=== PATIENT | male | born 1950 | race Caucasian/White ===

== ENCOUNTER → 2021-02-19 | Outpatient (CLI) | payer MEDICARE ==
[2021-02-19 11:19] LABS: ALT 30 U/L (10-49); AST 23 U/L (14-35); Chol/HDL Ratio 7.21 Ratio; LDL Cholesterol,Calculated 195.1 mg/dL (0.0-131.0)
== END | disposition home or self-care (01) ==
LOC: LABWHC1 07:04
PROVIDERS: ATTEND Internal Medicine Interventional Cardiology
DX: E78.2 Mixed hyperlipidemia (principal)
CPT/HCPCS: 36415; 80061; 84450; 84460

== ENCOUNTER → 2021-03-18 | Outpatient (CLI) | payer MEDICARE ==
[2021-03-18 11:29] LABS: HGB 15.8 g/dL (13.0-17.0); MCH 30.6 pg (27.0-32.0); MCHC 33.6 g/dL (32.0-37.0); MCV 91.1 fL (80.0-97.0); Mean Platelet Volume 9.9 fL (9.5-12.2); NRBC Per 100 WBC 0 /100 WBCS (0.0-0.0); Platelet Count 256 X 10*3/uL (140-440); RBC 5.16 X 10*6/uL (4.40-5.60); RDW 12.4 % (11.5-14.5); WBC 4.84 X 10*3/uL (4.50-10.00)
[2021-03-18 15:20] LABS: African American GFR (CKD) 83.7 (60.0-200.0); Anion Gap 11.9 mmol/L (10.00-18.00); Blood Urea Nitrogen 16.6 mg/dL (9.0-27.0); Carbon Dioxide 27.7 mmol/L (20.0-27.5); Non-African American GFR(CKD) 72.2 (60.0-200.0); Potassium 4.4 mmol/L (3.5-5.5)
== END ==
LOC: LABPAT 07:10
PROVIDERS: ATTEND Internal Medicine Interventional Cardiology
DX: R94.39 Abnormal result of other cardiovascular function study (principal)
CPT/HCPCS: 36415; 80051; 82565; 84520; 85027

== ENCOUNTER → 2023-06-22 | Outpatient (CLI) | payer MEDICARE ==
--- NOTE | 2023-06-22 16:32 | US ---
EXAMINATION TYPE: US carotid duplex BILAT DATE OF EXAM: 06/22/2023 COMPARISON: NONE CLINICAL INDICATION: Male, 73 years old with history of R09.89 OTH SYMPTOMS AND SIGNS INVOLVING THE C IRC A; Carotid bruit. Hx prior smoker x 10 years, hypertension, hyperlipidemia. TECHNIQUE: Carotid duplex ultrasound examination. Indirect Doppler criteria was utilized. FINDINGS: EXAM MEASUREMENTS: RIGHT: Peak Systolic Velocity (PSV) cm/sec ----- Right CCA: 91.9 ----- Right ICA: 80.1 ----- Right ECA: 112 ICA/CCA ratio: 1.07 RIGHT: End Diastole cm/sec ----- Right CCA: 15.5 ----- Right ICA: 12.6 ----- Right ECA: 0.0 LEFT: Peak Systolic Velocity (PSV) cm/sec ----- Left CCA: 101 ----- Left ICA: 159 ----- Left ECA: 204 ICA/CCA ratio: 1.57 LEFT: End Diastole cm/sec ----- Left CCA: 14.9 ----- Left ICA: 25.2 ----- Left ECA: 14.3 VERTEBRALS (direction of flow): Right Vertebral: Antegrade Left Vertebral: Antegrade Rhythm: Normal POWER PLANT MANAGER NOTES: Plaque seen within bilateral bulbs. Narrowing seen within proximal right ICA. Elevated velocities within left ICA and left ECA. IMPRESSION: 1. Approximately 50-69% stenosis in the mid/distal left ICA based on peak systolic velocity. 2. Less than 50% stenosis in the proximal right ICA. Criteria for Assigning % of Stenosis / Diameter reduction (Estimation based on the indirect measurements of the internal carotid artery velocities (ICA PSV). 1. Normal (no stenosis)=ICA PSV < 125 cm/s: ratio < 2.0: ICA EDV<40 cm/s. 2. Less than 50% stenosis=ICA PSV < 125 cm/s: ratio < 2.0: ICA EDV<40 cm/s. 3. 50 to 69% stenosis=ICA PSV of 125 to 230 cm/s: ration 2.0 ? 4.0: ICA EDV 40-100 cm/s. 4. Greater than 70% stenosis to near occlusion= ICA PSV > 230 cm/s: ratio > 4.0: ICA EDV > 100 cm/s. 5. Near occlusion= ICA PSV velocities may be low or undetectable: variable ratio and ICA EDV. 6. Total occlusion=unable to detect flow.
== END | disposition home or self-care (01) ==
LOC: RADUSWWP 13:53
PROVIDERS: ATTEND Family Medicine
DX: I65.23 Occlusion and stenosis of bilateral carotid arteries (principal); R09.89 Other specified symptoms and signs involving the circulatory and respiratory systems; E78.5 Hyperlipidemia, unspecified; I10 Essential (primary) hypertension; Z87.891 Personal history of nicotine dependence
CPT/HCPCS: 93880

== ENCOUNTER → 2023-07-06 | Outpatient (CLI) | payer MEDICARE ==
[2023-07-06 09:23] LABS: African American GFR (CKD) >90 (>60 ml/min/1.73 sqM); Blood Urea Nitrogen 19 mg/dL (9-20); Non-African American GFR(CKD) 88 (>60 ml/min/1.73 sqM)
--- NOTE | 2023-07-06 12:21 | CT ---
EXAMINATION TYPE: CT angio neck DATE OF EXAM: 07/06/2023 COMPARISON: Correlation carotid ultrasound 06/22/2023 HISTORY: 73-year-old male I65.29, STENOSIS, F/U TECHNIQUE: Contiguous axial scanning of the neck performed with IV Contrast, patient injected with 10 0 mL of Isovue 370. Coronal/sagittal reconstructions performed. 3-D reconstructions generated on a de dicated independent workstation. CT DLP: 328.5 mGycm Automated exposure control for dose reduction was used. FINDINGS: Configuration to the aortic arch. Codominant bilateral vertebral arteries, patent throughout their course. Incidental fenestrated basil ar artery noted, normal variant anatomy. Right common carotid artery is patent. Moderate atherosclerotic change at the origin of the right internal carotid artery with borderline mo derate 50% focal stenosis at its origin. Remainder of the right ICA is patent with retropharyngeal co urse proximal and mid ICA. Left common carotid artery is patent. Moderate atherosclerotic change at the left carotid bifurcation. Eccentric plaque intravenous to a mi ld, 30% distal CCA narrowing. Mixed atherosclerotic plaque causes irregularity along the proximal ICA but without significant narro wing. Retropharyngeal course proximal and mid ICA. NASCET criteria was utilized. IMPRESSION: 1. MODERATE ATHEROSCLEROTIC CHANGE OF THE BILATERAL CAROTID BIFURCATIONS. RETROPHARYNGEAL COURSE OF T HE BILATERAL PROXIMAL AND MID ICAs. 2. THE CHANGES CONTRIBUTE TO A BORDERLINE MODERATE, 50% FOCAL STENOSIS AT THE ORIGIN OF THE RIGHT ICA . 3. MILD, 30% STENOSIS DISTAL LEFT CCA. THE LEFT ICA SHOWS ATHEROSCLEROTIC IRREGULARITY PROXIMALLY BUT WITHOUT SIGNIFICANT STENOSIS.
== END | disposition home or self-care (01) ==
LOC: RADCTMAIN 08:44
PROVIDERS: ATTEND Family Medicine
DX: I65.21 Occlusion and stenosis of right carotid artery (principal); I25.10 Atherosclerotic heart disease of native coronary artery without angina pectoris
CPT/HCPCS: 82565; 84520; 70498; 36415; Q9967

== ENCOUNTER 2023-08-20 10:02 | Emergency (ER) | payer MEDICARE ==
[2023-08-20 10:08] VITALS: BP 152/69; PULSE 71; RESP 18; TEMP 97.8
[2023-08-20] MEDS: LIDOCAINE 1% INJ 10MG/ML (20 ML MDV) SQ ONE (10:37)
[2023-08-20] MEDS: BACITRACIN OINT 1 EACH PACKET TOPICAL ONE (10:38)
[2023-08-20] MEDS: DIPH,PERTUS(ACELL)TETVAC-LF 0.5 ML VIAL IM ONE (10:40)
--- NOTE | 2023-08-20 10:48 | ED ---
Wound/Laceration HPI - General Chief Complaint: Wound/Laceration Stated Complaint: L hand lac Time Seen by Provider: 08/20/23 10:09 Source: patient, RN notes reviewed Mode of arrival: ambulatory Limitations: no limitations - History of Present Illness Initial Comments: 73-year-old male presents emergency department chief complaint of laceration left hand fourth digit. Patient states that he was working caught in a lefty. Patient states he is unsure when his last tetanus was. Patient is leading is controlled he has a laceration of his fourth digit left hand - Related Data Home Medications Medication Instructions Recorded Confirmed Rosuvastatin [Crestor] 20 mg PO DAILY 03/27/21 hydroCHLOROthiazide 25 mg PO DAILY 03/27/21 Allergies Allergy/AdvReac Type Severity Reaction Status Date / Time Penicillins Allergy Unknown Verified 08/20/23 10:08 Review of Systems ROS Statement: Those systems with pertinent positive or pertinent negative responses have been documented in the HPI. ROS Other: All systems not noted in ROS Statement are negative. Past Medical History History of Any Multi-Drug Resistant Organisms: None Reported Past Surgical History: No Surgical Hx Reported Smoking Status: Never smoker Past Alcohol Use History: Occasional Past Drug Use History: None Reported General Exam Limitations: no limitations General appearance: alert, in no apparent distress Head exam: Present: atraumatic, normocephalic, normal inspection Neck exam: Present: normal inspection, full ROM. Absent: tenderness, meningismus, lymphadenopathy Respiratory exam: Present: normal lung sounds bilaterally. Absent: respiratory distress, wheezes, rales, rhonchi, stridor Cardiovascular Exam: Present: regular rate, normal rhythm, normal heart sounds. Absent: systolic murmur, diastolic murmur, rubs, gallop, clicks Extremities exam: Present: other (Left hand fourth digit there is an irregular 3 cm laceration on the distal tip has full range of motion no tendon involvement) Course Vital Signs 08/20/23 10:05 Temperature 97.8 F Pulse Rate 71 Respiratory 18 Rate Blood Pressure 152/69 O2 Sat by Pulse 98 Oximetry Procedures - Laceration Laceration #1 Consent Obtained: verbal consent Indication: laceration Site: hand (Left hand fourth digit) Size (cm): 3 Description: flap, avulsion, irregular Depth: simple, single layer Anesthetic Used: lidocaine 1% Anesthesia Technique: local infiltration Amount (mls): 3 Pre-repair: wound explored, irrigated extensively, deep structures intact Type of Sutures: nylon Size of Sutures: 4-0 Number of Sutures: 6 Technique: simple, interrupted Patient Tolerated Procedure: well, no complications Medical Decision Making - Medical Decision Making Was pt. sent in by a medical professional or institution (DEVAN Gilmore, RECEIVABLE MANAGER, urgent care, hospital, or group home...) When possible be specific @ -No Did you speak to anyone other than the patient for history (EMS, parent, family, police, friend...)? What history was obtained from this source @ -No Did you review nursing and triage notes (agree or disagree)? Why? @ -I reviewed and agree with nursing and triage notes Were old charts reviewed (outside hosp., previous admission, EMS record, old EKG, old radiological studies, urgent care reports/EKG's, group home records)? Report findings @ -No old charts were reviewed Differential Diagnosis (chest pain, altered mental status, abdominal pain women, abdominal pain men, vaginal bleeding, weakness, fever, dyspnea, syncope, headache, dizziness, GI bleed, back pain, seizure, CVA, palpatations, mental health, musculoskeletal)? @ -Finger laceration, open fracture EKG interpreted by me (3pts min.). @ -None X-rays interpreted by me (1pt min.). @ -X-ray left hand finger no acute fracture CT interpreted by me (1pt min.). @ -None done U/S interpreted by me (1pt. min.). @ -None done What testing was considered but not performed or refused? (CT, X-rays, U/S, labs)? Why? @ -None What meds were considered but not given or refused? Why? @ -None Did you discuss the management of the patient with other professionals (professionals i.e. DEVAN Gilmore, RECEIVABLE MANAGER, lab, RT, psych nurse, socially responsible investment adviser, manager poker, teacher, security officer supervisor, case packer)? Give summary @ -No Was smoking cessation discussed for >3mins.? @ -No Was critical care preformed (if so, how long)? @ -No Were there social determinants of health that impacted care today? How? (Homelessness, low income, unemployed, alcoholism, drug addiction, transportation, low edu. Level, literacy, decrease access to med. care, fdc, rehab)? @ -No Was there de-escalation of care discussed even if they declined (Discuss DNR or withdrawal of care, Hospice)? DNR status @ -No What co-morbidities impacted this encounter? (DM, HTN, Smoking, COPD, CAD, Cancer, CVA, ARF, Chemo, Hep., AIDS, mental health diagnosis, sleep apnea, morbid obesity)? @ -None Was patient admitted / discharged? Hospital course, mention meds given and route, prescriptions, significant lab abnormalities, going to OR and other pertinent info. @ -Did charge patient tetanus updated, laceration was repaired bacitracin applied wound care instruction provided return parameters provided Undiagnosed new problem with uncertain prognosis? @ -No Drug Therapy requiring intensive monitoring for toxicity (Heparin, Nitro, Insulin, Cardizem)? @ -No Were any procedures done? @ -No Diagnosis/symptom? @ -Finger laceration left hand Acute, or Chronic, or Acute on Chronic? @ -Acute Uncomplicated (without systemic symptoms) or Complicated (systemic symptoms)? @ -Uncomplicated Side effects of treatment? @ -No Exacerbation, Progression, or Severe Exacerbation? @ -No Poses a threat to life or bodily function? How? (Chest pain, [place], [place], pneumonia, PE, COPD, DKA, ARF, appy, cholecystitis, CVA, Diverticulitis, Homicidal, Suicidal, threat to staff... and all critical care pts) @ -No Disposition Clinical Impression: Laceration of finger of left hand Disposition: HOME SELF-CARE Condition: Stable Instructions (If sedation given, give patient instructions): Care For Your Stitches (ED), Finger Laceration (ED) Additional Instructions: Have sutures removed in 10 days. please return to the Emergency Department if symptoms worsen or any other concerns. Is patient prescribed a controlled substance at d/c from ED?: No Referrals: Kalen Arellano MD [Primary Care Provider] - 1-2 days Time of Disposition: 10:47
--- NOTE | 2023-08-20 11:03 | XR ---
EXAMINATION TYPE: XR finger LT DATE OF EXAM: 08/20/2023 COMPARISON: None HISTORY: Trauma laceration TECHNIQUE: 3 view left index finger FINDINGS: No acute fracture or dislocation is evident. Degenerative joint changes present in proximal distal interphalangeal joint space. There is some soft tissue near the mid to distal index finger. S oft tissue swelling may be present. No radiopaque foreign bodies are evident. Follow up exams can be performed 7-10 days from acute trauma for continued pain. IMPRESSION: 1. No acute osseous abnormality left index finger. 2. Soft tissue injury mid and distal index finger.
[2023-08-20] MEDS: IBUPROFEN 600 MG TAB PO STA (11:30)
== END 2023-08-20 11:34 | disposition home or self-care (01) ==
LOC: EC 10:02
DX: S61.215A Laceration without foreign body of left ring finger without damage to nail, initial encounter (principal); Z88.0 Allergy status to penicillin; Z23 Encounter for immunization; W31.9XXA Contact with unspecified machinery, initial encounter
CPT/HCPCS: 99283; 90471; 12002; 73140; 90715; J2001